=== PATIENT | female | born 1990 | race African-American/Black ===

== ENCOUNTER 2017-07-01 17:18 | Emergency (ER) | payer SELFPAY ==
[~2017-07-01] VITALS: Ht 165.1 cm; Wt 72.0 kg
[2017-07-01 17:20] VITALS: BP 138/89; PULSE 84; RESP 18; TEMP 98.2; O2SAT 100
--- NOTE | 2017-07-01 19:36 | PD ---
HPI Chief Complaint: Oral / Dental Pain or Problem Time Seen by Provider: 19:20 Travel History International Travel<30 days: No Contact w/Intl Traveler<30days: No Traveled to known affect area: No History of Present Illness HPI Patient is a 27-year-old female with 1 day of facial swelling parotid area and submental on the left. She also has painful broken tooth in the left lower premolar area patient is not seen another doctor or dentist for this and has taken only Tylenol with moderate relief she says I didn't find any more Tylenol because it did not help at all the pain. She has no allergies to antibiotics and she is on no antibiotics at this time. She says she knows of a dentist she can see but she has not seen them yet and the facial swelling started this morning and has progressed significantly as per patient she has an obvious mild swelling to the lower left parotid and submental area on the left PFSH Past Medical History Medical History: Denies Significant Hx Diminished Hearing: No Immunizations Current: Yes Tetanus Vaccination: > 5 Years Influenza Vaccination: No ?: Not LMP: 06/27/17 Past Surgical History Surgical History: No Previous Surgery Social History Alcohol Use: Yes (occasional) Tobacco Use: No Substance Use: No Allergies-Medications (Allergen,Severity, Reaction): Coded Allergies: No Known Allergies (Verified Adverse Reaction, Unknown, 07/01/17) Reported Meds & Prescriptions Reported Meds & Active Scripts Active Ibuprofen 600 Mg Tab 600 Mg PO Q6H PRN Penicillin V Potassium 500 Mg Tab 500 Mg PO Q8H Review of Systems Except as stated in HPI: all other systems reviewed are Neg HENT: Positive: Other (tooth acvhe and swelling to left parotid and submental ) Physical Exam Narrative GENERAL: Nontoxic-appearing awake alert SKIN: Warm and dry. HEAD: Atraumatic. Normocephalic. EYES: Pupils equal and round. No scleral icterus. No injection or drainage. ENT: No nasal bleeding or discharge. Mucous membranes pink and moist. Swelling to the left parotid and submandibular area and a fractured tooth premolar left lower jaw NECK: Trachea midline. No JVD. CARDIOVASCULAR: Regular rate and rhythm. RESPIRATORY: No accessory muscle use. Clear to auscultation. Breath sounds equal bilaterally. GASTROINTESTINAL: Abdomen soft, non-tender, nondistended. Hepatic and splenic margins not palpable. MUSCULOSKELETAL: Extremities without clubbing, cyanosis, or edema. No obvious deformities. NEUROLOGICAL: Awake and alert. No obvious cranial nerve deficits. Motor grossly within normal limits. Five out of 5 muscle strength in the arms and legs. Normal speech. PSYCHIATRIC: Appropriate mood and affect; insight and judgment normal. Data Data Last Documented VS Vital Signs Date Time Temp Pulse Resp B/P (MAP) Pulse Ox O2 Delivery O2 Flow Rate FiO2 07/01/17 20:39 98.1 82 18 117/12 (47) 100 07/01/17 17:20 Room Air Orders Orders Penicillin V Potassium (Veetids) (07/01/17 19:45) Ibuprofen (Motrin) (07/01/17 19:45) MDM Medical Decision Making Medical Screen Exam Complete: Yes Emergency Medical Condition: Yes Differential Diagnosis Tooth infection versus apical abscess versus is parotiditis versus lymphadenopathy of neck glands anterior Narrative Course Pen V K and motrin PO and discharge with close dental follow up Diagnosis Primary Impression: Toothache Additional Impressions: Lymphadenopathy Lymphadenopathy, submandibular Patient Instructions: General Instructions, Toothache (ED) Med/Other Pt SpecificInfo: Prescription(s) given Scripts Ibuprofen (Ibuprofen) 600 Mg Tab 600 MG PO Q6H Y for Pain/Inflammation, #40 TAB 0 Refills Prov: Rogelio Robert MD 07/01/17 Penicillin V Potassium (Penicillin V Potassium) 500 Mg Tab 500 MG PO Q8H for Infection, #30 TAB 0 Refills Prov: Rogelio Robert MD 07/01/17 Disposition: 01 DISCHARGE HOME Rogelio Robert MD Jul 01, 2017 19:36
[2017-07-01] MEDS ORDERED: PENI500T PO (19:41)
[2017-07-01] MEDS ORDERED: IBUP-232 PO (19:41)
[2017-07-01] MEDS ORDERED: IBUPROFEN 800 MG TAB PO ONE (19:45)
[2017-07-01] MEDS ORDERED: PENICILLIN V POTASSIUM 500 MG TAB PO ONE (19:45)
[2017-07-01 20:39] VITALS: BP 117/12; TEMP 98.1
== END 2017-07-01 20:40 | disposition home or self-care (01) ==
LOC: NEPC 17:18
DX: K08.89 Other specified disorders of teeth and supporting structures (principal); R59.1 Generalized enlarged lymph nodes
CPT/HCPCS: 99283